=== PATIENT | male | born 1950 | race Caucasian/White ===

== ENCOUNTER → 2016-07-13 | Day surgery (SDC) | payer BC ==
[~2016-07-13] VITALS: Ht 180.3 cm; Wt 118.7 kg
[~2016-07-13] MED LIST: ALEVE220 MG PO; ASPIRIN EC81 MG PO; CIPRO500 MG PO; COREG6.25 MG PO; DITROPAN XL10 MG PO; FLOMAX0.4 MG PO; LEVAQUIN 250 M250 MG PO; LOPRESSOR25 MG PO; NORCO 10-325 T1 EACH PO; PRAVACHOL40 MG PO; TYLENOL WITH C1 EACH PO; ULTRAM50 MG PO; VOLTAREN 1% GE100 GM TOP; XARELTO20 MG PO; ZESTRIL40 MG PO; ZYLOPRIM100 MG PO
--- NOTE | ~2016-07-13 | OR ---
PATIENT'S NAME: ROSETTA GONSALVES [facility] AGE: 66 Y [address] ROOM: [place] [address] LOCATION: [facility] [place] [facility] [place] ADMIT DATE: 07/13/2016 OR/Procedure Report DISCHARGE DATE: FAMILY PHYSICIAN: ARNOLD TAFOYA MD ATTENDING PHYSICIAN: Major Grant SURGEON: Major Grant MD PLUMBING ENGINEERING DRAFTSPERSON: DATE OF PROCEDURE: 07/13/2016 PREOPERATIVE DIAGNOSIS: Left nephrolithiasis. POSTOPERATIVE DIAGNOSIS: Left nephrolithiasis. PROCEDURE PERFORMED: Left ESWL, cystoscopy with stent removal. ANESTHESIA: MAC. COMPLICATIONS: None. INDICATION FOR PROCEDURE: The patient is a 66-year-old male, who is status post prior cystoscopy with stent placement with left ESWL and also left flexible ureteroscopy and stent exchange. The patient now presents for completion of his therapy. DETAILS OF PROCEDURE: After informed consent obtained, the patient was taken to the operating room. MAC anesthetic was applied, and he was placed in the supine position on the lithotripsy table. Fluoroscopy was then used to target his stone. He received shocks starting at 14 kilovolts which is gradually increased to 24 kilovolts. The patient received a total of 3000 shocks and the stone appeared to fragment with treatment. The groin area was then prepped and draped in normal sterile fashion. Flexible cystoscope was introduced into the urethra and bladder without difficulty. His stent was identified, engaged with a grasping device, and removed. The patient tolerated his procedure well and was transferred to recovery room in good condition. MAJOR GRANT MD KENYA/modl PATIENT'S NAME: ROSETTA GONSALVES [facility] AGE: 66 Y [address] ROOM: [place] [address] LOCATION: [facility] [place] [facility] [place] ADMIT DATE: 07/13/2016 OR/Procedure Report DISCHARGE DATE: FAMILY PHYSICIAN: ARNOLD TAFOYA MD ATTENDING PHYSICIAN: Major Grant /[id number] CC: Arnold Tafoya MD d: 07/13/16 2145 t: 07/13/16 2303, OPERATIVE SUMMARY
== END ==
LOC: GSDC 10:58
PROC: 0TF3XZZ Fragmentation in Right Kidney Pelvis, External Approach (ICD-10-PCS; principal; 2016-07-13)
PROC: 0TPD8DZ Removal of Intraluminal Device from Urethra, Via Natural or Artificial Opening Endoscopic (ICD-10-PCS; 2016-07-13)
DX: N20.0 Calculus of kidney (principal); I10 Essential (primary) hypertension; I25.10 Atherosclerotic heart disease of native coronary artery without angina pectoris; M19.90 Unspecified osteoarthritis, unspecified site; I48.91 Unspecified atrial fibrillation; E78.5 Hyperlipidemia, unspecified; Z98.890 Other specified postprocedural states; Z79.899 Other long term (current) drug therapy; Z88.5 Allergy status to narcotic agent
CPT/HCPCS: J1956; J2001; J7120

== ENCOUNTER → 2016-08-03 | Outpatient (CLI) | payer BC | END | disposition disaster alternative care site (69) | LOC: GRAD 10:15 | DX: N20.0 Calculus of kidney (principal); N42.89 Other specified disorders of prostate; Z96.0 Presence of urogenital implants ==

== ENCOUNTER → 2017-01-04 | Outpatient (CLI) | payer BC | END | disposition disaster alternative care site (69) | LOC: GRAD 10:00 | DX: N20.0 Calculus of kidney (principal) ==